=== PATIENT | male | born 1960 | race Caucasian/White ===

== ENCOUNTER 2017-12-17 06:55 | Emergency (ER) | payer OTHER, BC ==
--- NOTE | 2017-12-17 07:14 | ER Document Report ---
ED General - General Chief Complaint: Knee Pain Stated Complaint: KNEE PAIN Time Seen by Provider: 12/17/17 07:14 Mode of Arrival: Wheelchair Information source: Patient, Relative - spouse TRAVEL OUTSIDE OF THE [place] IN LAST 30 DAYS: No - HPI Notes: 57-year-old male with a past medical history diabetes presents to the right knee giving 2 hours ago while he was stepping down running. Denies hitting head or change in level consciousness. Patient states pain is 7 out of 10, throbbing achy. Has not tried any [id number] medications for this pain. Denies previous injury to this knee. Denies any numbness or tingling to bilateral lower extremities. Pain is worse with time, not walking makes it better. Denies fevers, chills, chest pain,palpitations, shortness of breath, dyspnea, nausea, vomiting, diarrhea, abdominal pain, hematuria,blurred vision, double vision, loss of vision, speech changes, LH, dizziness, syncope, headaches , wheezing, ST, URI, neck pain, weakness, bowel or bladder dysfunction, saddle anesthesia, numbness or tingling in bilateral upper or lower extremities equally , muscle paralysis, weakness in bilateral upper or lower extremities equally or rash. Denies IV drug use. - Related Data Allergies/Adverse Reactions: No Known Allergies Allergy (Verified 12/17/17 07:23) Past Medical History - General Information source: Patient, Relative - spouse - Social History Smoking Status: Unknown if Ever Smoked Family History: Reviewed & Not Pertinent - Past Medical History Cardiac Medical History: Reports: Hx Hypercholesterolemia Denies: Hx Coronary Artery Disease, Hx Heart Attack, Hx Hypertension Pulmonary Medical History: Reports: Hx Asthma, Hx COPD Denies: Hx Bronchitis, Hx Pneumonia Neurological Medical History: Denies: Hx Cerebrovascular Accident, Hx Seizures Endocrine Medical History: Reports: Hx Diabetes Mellitus Type 2 Musculoskeletal Medical History: Reports Hx Arthritis - Left Knee Past Surgical History: Reports: Hx Orthopedic Surgery. Denies: Hx Pacemaker - Immunizations Hx Diphtheria, Pertussis, Tetanus Vaccination: Yes Review of Systems - Review of Systems Constitutional: No symptoms reported EENT: No symptoms reported Cardiovascular: No symptoms reported Respiratory: No symptoms reported Gastrointestinal: No symptoms reported Genitourinary: No symptoms reported Male Genitourinary: No symptoms reported Musculoskeletal: See HPI Skin: No symptoms reported Hematologic/Lymphatic: No symptoms reported Neurological/Psychological: No symptoms reported Physical Exam - Vital signs Vitals: Temp Pulse Resp BP Pulse Ox 98.4 F 69 16 168/82 H 95 12/17/17 06:59 12/17/17 06:59 12/17/17 06:59 12/17/17 06:59 12/17/17 06:59 - Notes Notes: PHYSICAL EXAMINATION: GENERAL: Well-appearing, well-nourished and in no acute distress. HEAD: Atraumatic, normocephalic. EYES: Pupils equal round and reactive to light, extraocular movements intact, sclera anicteric, conjunctiva are normal. ENT: Nares patent, oropharynx clear without exudates. Moist mucous membranes. NECK: Normal range of motion, supple without lymphadenopathy LUNGS: Breath sounds clear to auscultation bilaterally and equal. No wheezes rales or rhonchi. HEART: Regular rate and rhythm without murmurs ABDOMEN: Soft, nontender, nondistended abdomen. No guarding, no rebound. No masses appreciated. Musculoskeletal: Normal range of motion, no pitting or edema. No cyanosis. right knee pain with palpation to lateral aspect of knee with noted swelling along with tenderness to distal aspect of the right quadriceps with inversion eversion and flexion and extension, no blanching noted in quadriceps. negative josselin's sign. anterior and posterior drawer test negative. Dtr + 2 in BLE. Full motor and sensory function to BLE equally. No open wounds. No induration or drainage. Strength 5 out of 5 bilaterally equally. Ankle examination normal. Squeeze test negative. Hip examination normal. Pulses + 2 bilaterally and equally. no ecchymosis noted around right thigh or knee. NEUROLOGICAL: Cranial nerves grossly intact. Normal speech, normal gait. Normal sensory, motor exams PSYCH: Normal mood, normal affect. SKIN: Warm, Dry, normal turgor, no rashes or lesions noted. Course - Re-evaluation Re-evalutation: 12/17/17 08:18 Patient is afebrile, vitals stable and in no distress. Right knee x-ray shows thickening of the quadriceps with well circumcised calcification, likely related to quadricep tendinopathy. I did recommend an MRI for use further evaulation. this provider clarified with Dr. Oliver, radiologist, who suspected acute on chronic tendon rupture, she did recommend having an MRI while in the today as opposed to outpatient follow-up at 0815. MRI right lower extremity without contrast was discussed with patient that he will need to follow-up with an machine shop specialist, crutches and knee immobilizer given. On reevaluation patient remains afebrile, vitals stable and in no distress at this time. MRI right lower extremity without contrast shows a full-thickness tear of the distal, Mishra of the tendon along the vastus lateralis attachment of the patella as well as muscle strain. Patient given work note. patient given 60 mg IM of Toradol and a sixpack of [place] 5 m-325 mg. Patient given work note, given an orthopedic referral to follow-up outpatient. Discussed with patient to follow Rice therapy. Patient is in no distress, vitals remained stable and afebrile. Patient has no focal neurological deficits. after performing a Medical Screening Examination, I estimate there is LOW risk for OPEN FRACTURE, COMPARTMENT SYNDROME, ACUTE NEUROVASCULAR INJURY, or RETAINED FOREIGN BODY, thus I consider the discharge disposition reasonable. Also, there is no evidence or peritonitis, sepsis, or toxicity. I have reevaluated this patient multiple times and no significant life threatening changes are noted. The patient and I have discussed the diagnosis and risks, and we agree with discharging home with close follow-up with the understanding that symptoms and presentations can change. We also discussed returning to the Emergency Department immediately if new or worsening symptoms occur. We have discussed the symptoms which are most concerning (e.g., changing or worsening pain, fever, numbness, weakness, cool or painful digits) that necessitate immediate return. 12/17/17 08:27 - Vital Signs Vital signs: Temp Pulse Resp BP Pulse Ox 98.3 F 64 17 150/75 H 98 12/17/17 13:57 12/17/17 13:57 12/17/17 13:57 12/17/17 13:57 12/17/17 13:57 Discharge - Discharge Clinical Impression: Quadriceps tendon rupture Qualifiers: Encounter type: initial encounter Laterality: right Qualified Code(s): S76.111A - Strain of right quadriceps muscle, fascia and tendon, initial encounter Right knee sprain Qualifiers: Encounter type: initial encounter Involved ligament of knee: other ligament Qualified Code(s): S83.8X1A - Sprain of other specified parts of right knee, initial encounter Condition: Stable Disposition: HOME, SELF-CARE Instructions: Use of Crutches ([facility]), Knee Immobilizing Splint ([facility]) Additional Instructions: Follow Rice therapy. Triston bandage wrapped around support. Limit any weightbearing. Elevate massage 10-15 minutes 3-10 times a day, wear full thigh compression wrap, isometric contractions exercises of 8-10 reps 3-5 times per day as tolerated. Follow-up with an machine shop specialist within 3 days. Please follow up with the [facility] [address] [place], [place] [id number] Return immediately for any new or worsening symptoms. Follow up with primary care provider, call tomorrow to make followup appointment. Forms: Return to Work Referrals: JASS OTTO PA-C [Primary Care Provider] - Follow up in 3-5 days REECE VANESSA DO [ACTIVE STAFF] - Follow up in 3-5 days
--- NOTE | 2017-12-17 07:45 | RADIOLOGY REPORT (SQ) ---
EXAM DESCRIPTION: XR KNEE 4 OR MORE VIEWS COMPLETED DATE/TME: 12/17/2017 07:18 CLINICAL HISTORY: 57 years, Male, right knee pain s/p knee giving out COMPARISON: None. NUMBER OF VIEWS: Four TECHNIQUE: Four views of the right knee LIMITATIONS: None. FINDINGS: There is thickening of the quadriceps tendon with a well-circumscribed calcification. No acute fracture or dislocation. The joint spaces are preserved. IMPRESSION: Thickening of the quadriceps with a well-circumscribed calcification, likely related to quadriceps tendinopathy. An MRI may be useful in further evaluation. No acute fracture dislocation 2010 [employer] All Rights Reserved
[2017-12-17] MEDS ORDERED: KETOROLAC TROMETHAMINE 60 MG/2 ML SDV IM ONE (08:05)
[2017-12-17] MEDS ORDERED: HYDROCODONE/ACETAMINOPHEN 5-325 MG (6 TAB/ER DISP) PO PRN (08:18)
--- NOTE | 2017-12-17 13:01 | RADIOLOGY REPORT (SQ) ---
EXAM DESCRIPTION: MRI RT LOWER EXTREMITY WITHOUT COMPLETED DATE/TIME: 12/17/2017 12:43 pm REASON FOR STUDY: quad rupture seen on xray, noted tendionopathy COMPARISON: None. TECHNIQUE: Right thigh images acquired and stored on PACS. Multiplanar images include fat sensitive sequences as T1, water sensitive sequences as FST2 or STIR, cartilage sensitive sequences as FSPD, a nd gradient echo sequences. LIMITATIONS: None. FINDINGS: There is vastus lateralis muscle strain with edema within the muscle throughout the muscul otendinous junction in the lower 2/3 of the right thigh. This is best shown on coronal images 10 thr ough 17. A full-thickness tear of the distal quadriceps tendon is present along the vastus lateralis attachmen t to the patella, best shown on axial images 18-27, sagittal images 11 and 12, and coronal image 10. A full-thickness tear of the distal quadriceps tendon along the vastus medialis tendon is present, be st shown on coronal image 9 and sagittal image 16. There is muscle strain with edema in the distal 3 rd of the vastus medialis muscle. Fluid tracks along the ventral aspect of the distal quadriceps muscles and torn tendon into the media l prepatellar soft tissues. Large field of view of today's exam. Limited resolution images of the right knee demonstrate that th e anterior and posterior cruciate ligaments, medial and lateral collateral ligaments, medial and late ral patellar retinacula are intact. No patella, femur, proximal tibia or fibula fracture. IMPRESSION: Torn quadriceps tendon attachment to the patella with vastus lateralis and vastus medial is muscle strain TECHNICAL DOCUMENTATION: JOB ID: [id number] 9732 [employer]- All Rights Reserved Reading location - IP/workstation name: [facility]
[2017-12-17 14:00] VITALS: BP 150/75
== END 2017-12-17 14:00 | disposition home or self-care (01) ==
LOC: ER 06:55
DX: S76.111A Strain of right quadriceps muscle, fascia and tendon, initial encounter (principal); S83.8X1A Sprain of other specified parts of right knee, initial encounter; X50.0XXA Overexertion from strenuous movement or load, initial encounter; E11.9 Type 2 diabetes mellitus without complications; E78.00 Pure hypercholesterolemia, unspecified
CPT/HCPCS: 99283; 96372; 73718; 73564; L1830; J1885

== ENCOUNTER → 2017-12-20 | Outpatient (CLI) | payer OTHER, BC ==
[2017-12-20 15:08] LABS: ABSOLUTE EOSINOPHILS # (AUTO) 0.1 10^3/uL (0.0-0.6); ABSOLUTE LYMPHOCYTES (AUTO) 1.9 10^3/uL (0.5-4.7); ABSOLUTE MONOCYTES (AUTO) 0.7 10^3/uL (0.1-1.4); ABSOLUTE NEUT (AUTO) 4.9 10^3/uL (1.7-8.2); BASOPHILS % (AUTO) 0.6 % (0-2); EOSINOPHILS % (AUTO) 1.5 % (0-6); HEMATOCRIT 39.2 % (37.9-51.0); HEMOGLOBIN 13.5 g/dL (13.5-17.0); LYMPHOCYTES % (AUTO) 25.3 % (13-45); MEAN CORPUSCULAR HEMOGLOBIN 30.5 pg (27.0-33.4); MEAN CORPUSCULAR HGB CONC 34.4 g/dL (32.0-36.0); MEAN CORPUSCULAR VOLUME 89 fl (80-97); MONOCYTES % (AUTO) 8.8 % (3-13); PLATELET COUNT 234 10^3/uL (150-450); RED BLOOD COUNT 4.43 10^6/uL (4.35-5.55); RED CELL DISTRIBUTION WIDTH 13.2 % (11.5-14.0); SEGMENTED NEUTROPHILS % (AUTO) 63.8 % (42-78); TOTAL CELLS COUNTED % (AUTO) 100 %; WHITE BLOOD COUNT 7.7 10^3/uL (4.0-10.5)
[2017-12-20 15:31] LABS: ANION GAP 13 (5-19); BLOOD UREA NITROGEN 13 mg/dL (7-20); CALCIUM 9.6 mg/dL (8.4-10.2); CARBON DIOXIDE 30 mmol/L (22-30); CHLORIDE 99 mmol/L (98-107); GLUCOSE 213 mg/dL (75-110); POTASSIUM 4.2 mmol/L (3.6-5.0)
--- NOTE | 2017-12-20 22:00 | EKG REPORT ---
SEVERITY:- OTHERWISE NORMAL ECG - SINUS ARRHYTHMIA, RATE 57-82 BORDERLINE LEFT AXIS DEVIATION : Confirmed by: Joey Booker 20-Dec-2017 21:59:56
== END ==
LOC: OD 13:33
PROVIDERS: ATTEND Orthopaedic Surgery
DX: Z01.810 Encounter for preprocedural cardiovascular examination (principal); Z01.812 Encounter for preprocedural laboratory examination
CPT/HCPCS: 36415; 80048; 85025; 93005; 93010